=== PATIENT | male | born 1970 | race Caucasian/White ===

== ENCOUNTER 2018-02-16 10:02 | Observation (INO) | payer MEDICARE ==
[2018-02-16] VITALS (10 sets, daily range): BP systolic 118–170; BP diastolic 72–89; BMI 42.8
[~2018-02-16] VITALS: Ht 170.2 cm; Wt 120.7 kg
--- NOTE | ~2018-02-16 | HEMODYNAMI ---
PATIENT:DEIDRA MOORE MEDICAL RECORD: [id number] : 66 LOCATION:[facility] D.2116 ADMISSION DATE: 02/16/18 Generatedon:02/17/20189:55 Patient name: DEIDRA MOORE Patient #: [id number] SSN: : 1970 Date of study: 02/17/2018 Page: Of Hemodynamic Procedure Report Patient Data Patient Demographics Procedure consent was obtained First Name: DEIDRA Gender: Male Last Name: OSCAR : 1970 [facility] Initial: L Age: 48 year(s) Patient #: [id number] Race: Unknown Additional ID: [id number] Contact details [address]: [address] [place] [address] State: [place] City: [place] Zip code: [address] Past Medical History Allergies Allergen Reaction Date Comments Reported Penicillins 02/17/2018 Admission Admission Data Admission Date: 02/16/2018 Admission Time: 13:17 Room #: D.2116 Lab Results Lab Result Date: 02/17/2018 Lab Result Time: 0:00 Biochemistry Name Units Result Min Max BUN mg/dl 12 --(-*--)-- 7 18 Creatinine mg/dl 0.9 --(-*--)-- 0.6 1.3 CBC Name Units Result Min Max Hemoglobin g/dl 13.2 -*(----)-- 13.5 17.5 Procedure Procedure Types Cath Procedure Diagnostic Procedure [facility] w/Coronaries Procedure Description Procedure Date Procedure Date: 02/17/2018 Procedure Start Time: 9:36 Procedure End Time: 9:53 Procedure Staff Name Function Yunior Shah MD Performing Physician Shelby Aguilera RT Monitor John Nixon RN Nurse Diamond Robles RT Scrub Procedure Data Cath Procedure Fluoroscopy Diagnostic fluoroscopy Total fluoroscopy Time: 3.5 time: 3.5 min min Diagnostic fluoroscopy Total fluoroscopy dose: 738 dose: 738 mGy mGy Contrast Material Contrast Material Type Amount (ml) Isovue 300 40 Entry Location Entry Primary Successful Side Size Upsize Upsize Entry Closure Eid ccessful Closure Location (Fr) 1 (Fr) 2 (Fr) Remarks Device Remarks Radial Right 6 Fr Mechanical artery Short Compression Estimated blood loss: 5 ml Diagnostic catheters Device Type Used For End Catheter Placement DIAGNOSTIC [place] 110cm Procedure 5Fr catheter ([id number]) DIAGNOSTIC [place] 110cm 5 Procedure Fr catheter ([id number]) Procedure Complications No complications Procedure Medications Medication Administration Route Dosage 0.9% NaCl I.V. 100 ml/hr Oxygen etCO2 Nasal cannula 2 l/min Heparin Flush Bag added to field 2 bags (1000units/500ml NS) Lidocaine 2% added to field 20 Radial Cocktail added to field 1 syringe (Verapomil 2mg/Nitro 400mcg/Heparin 1500units) Versed I.V. 2 mg Fentanyl I.V. 100 mcg Fentanyl I.V. 100 mcg Radial Cocktail I.A. 1 syringe (Verapomil 2mg/Nitro 400mcg/Heparin 1500units) Hemodynamics Rest HGB: 13.2 (g/dl) Heart Rate: 68 (bpm) Pressure Samples Time Site Value (mmHg) Purpose Heart Use Rate(bpm) 9:43 LV 128/22,25 Snapshot 85 9:44 AO 124/85(99) Pullback 87 9:44 LV 112/4,0 Pullback 87 Gradients Valve Time Site 1 Site 2 Mean SEP/DFP Peak To Heart Use (mmHg) (sec/min) Peak Rate (mmHg) (bpm) Aortic 9:44 LV AO 0 87 112/4,0 124/85(99) Calculations Valve P-P Mean Valve Index Valve Source Name Gradient Area Flow (cm2) Aortic 0 0 Snapshots Pre Cath Intra NCS Post Cath Vital Signs Time Heart Resp SPO2 etCO2 NIBP (mmHg) Rhythm Pain Sedation Rate (ipm) (%) (mmHg) Status Level (bpm) 9:24:32 74 16 98 44.4 133/80(115) NSR 0 (11) 10(A) , No pain 9:29:19 74 16 100 43.6 135/86(115) NSR 0 (11) 10(A) , No pain 9:34:06 79 17 96 42.9 129/84(104) NSR 0 (11) 10(A) , No pain 9:38:48 80 15 93 36.1 120/102(109) NSR 0 (11) 10(A) , No pain 9:44:18 85 13 92 28.6 119/75(111) NSR 0 (11) 9(A) , No pain 9:49:01 89 14 95 39.1 134/89(118) NSR 0 (11) 9(A) , No pain 9:53:42 87 9 97 36 130/91(127) NSR 0 (11) 9(A) , No pain Medications Time Medication Route Dose Verified Delivered Reason Notes Effectiveness by by 9:34:13 0.9% NaCl I.V. 100 John John Per ml/hr Tiffani Nixon physician RN RN 9:34:24 Oxygen etCO2 2 l/min John John Per Nasal Tiffani Nixon physician cannula RN RN 9:34:36 Heparin Flush added 2 bags John John used for Bag to Lorigan Tiffani procedure (1000units/500ml field RN RN NS) 9:34:47 Lidocaine 2% added 20ml John John for local to vial Lorigan Tiffani anesthetic RN RN 9:34:58 Radial Cocktail added 1 John John used for (Verapomil to syringe Lorigan Tiffani procedure 2mg/Nitro field CAMPOS RN 400mcg/Heparin 1500units) 9:35:15 Versed I.V. 2 mg John John for sedation Tiffani Nixon RN RN 9:35:24 Fentanyl I.V. 100 mcg John John for sedation Tiffani Nixon RN RN 9:41:33 Fentanyl I.V. 100 mcg John John for sedation Tiffani Nixon RN RN 9:41:44 Radial Cocktail I.A. 1 John Yunior for (Verapomil syringe Tiffani Shah MD vasodilation 2mg/Nitro RN 400mcg/Heparin 1500units) Procedure Log Time Note 8:53:42 Signed procedure consent form obtained from patient. 8:53:46 Time tracking: Regular hours (M-F 7:00 - 5:00) 8:53:50 Plan of Care:Hemodynamics will remain stable., Cardiac rhythm will remain stable., Comfort level will be maintained., Respiratory function will remain adequate., Patient/ family verbilizes understanding of procedure., Procedure tolerated without complication., Recovers from procedure without complications.. 8:54:22 H&P Date Dictated: 02/16/2018 Within 30 days and on chart.. 8:54:31 Patient allergic to Penicillins 8:55:05 Lab Result : BUN 12 mg/dl 8:55:05 Lab Result : Creatinine 0.9 mg/dl 8:55:05 Lab Result : Hemoglobin 13.2 g/dl 9:08:20 John Nixon RN sent for patient. Start room use. 9:23:28 Patient received from Pre/Post Procedure Room to CCL 1 Alert and oriented. Tansferred to table in Supine position. 9:23:30 Warm blankets applied, and cosme hugger turned on for patient comfort. 9:23:31 Correct patient and procedure confirmed by team. 9:23:33 ECG and BP/O2 sat monitors applied to patient. 9:23:34 Baseline sample Acquired. 9:23:34 Vital chart was started 9:23:39 Rhythm: sinus rhythm 9:23:41 Full Disclosure recording started 9:23:50 Pre-procedure instructions explained to patient. 9:23:51 Pre-op teaching completed and patient verbalized understanding. 9:24:14 Family unavailable. 9:24:18 Is the patient allergic to Iodine/contrast media? No. 9:24:29 Is patient on blood thinner?No 9:24:33 Patient diabetic? Yes. 9:24:35 ----Pre-sedation anethsthesia assessment.---- 9:24:38 Previous problem with sedation/anesthesia? No ? 9:24:40 Snore? Yes 9:24:42 Sleep apnea? No 9:25:03 If diabetic: On Metformin? No 9:25:07 Deviated septum? No 9:25:11 Opens mouth fully? Yes 9:25:17 Sticks out tongue? Yes 9:25:20 Airway obstruction? No ? 9:25:24 Dentures? No ? 9:25:33 Pre procedure: right dorsailis pedis pulse 2+ Normal; easily identifiable; not easily obliterated 9:25:38 Modified Rubén's test Ulnar < 7 seconds 9:25:57 IV patent on arrival in left hand with 0.9% NaCl at KVO. 9:26:29 Lab results completed and on chart. 9:26:35 Right Radial & Right Groin area was prepped with chlora-prep and draped in sterile fashion 9:26:38 Alarms reviewed by Amara N. 9:26:38 Sharps counted by scrub and verified by R.N. 9:30:01 Use device set Radial Dx or PCI 9:30:03 ACIST Syringe (54292) opened to sterile field. 9:30:03 Medline Cath Pack ([id number]) opened to sterile field. 9:30:06 Bag Decanter (2002S) opened to sterile field. 9:30:07 ACIST Hand Control (41057) opened to sterile field. 9:30:07 ACIST Manifold (94037) opened to sterile field. 9:30:08 Tegaderm 4 x 4 (1626W) opened to sterile field. 9:30:10 DIAGNOSTIC WIRE .035 260cm J wire (856544) opened to sterile field. 9:30:11 MBrace Wrist Support ([id number]) opened to sterile field. 9:30:13 SHEATH 6Fr Prelude Radial ([id number]) opened to sterile field. 9:31:13 --------ALL STOP TIME OUT------ 9:31:14 Final Timeout: patient, procedure, and site verified with staff and physician. All members of the team are in agreement. 9:31:16 Right Radial & Right Groin site verified by team. 9:31:19 Physical assessment completed. ASA score P 2 - A patient with mild systemic disease as per Yunior Shah MD. 9:31:22 Sedation plan: IV Moderate Sedation Medication:Versed, Fentanyl 9:33:06 Zero performed for pressure channel P1 9:34:13 0.9% NaCl 100 ml/hr I.V. was administered by John Nixon RN; Per physician; 9:34:24 Oxygen 2 l/min etCO2 Nasal cannula was administered by John Nixon RN; Per physician; 9:34:36 Heparin Flush Bag (1000units/500ml NS) 2 bags added to field was administered by John Nixon RN; used for procedure; 9:34:47 Lidocaine 2% 20ml vial added to field was administered by John Nixon RN; for local anesthetic; 9:34:58 Radial Cocktail (Verapomil 2mg/Nitro 400mcg/Heparin 1500units) 1 syringe added to field was administered by John Nixon RN; used for procedure; 9:35:15 Versed 2 mg I.V. was administered by John Nixon RN; for sedation; 9:35:24 Fentanyl 100 mcg I.V. was administered by John Nixon RN; for sedation; 9:35:49 Procedure started. 9:36:22 Local anesthetic to right radial artery with Lidocaine 2% by Yunior Shah MD.INITIAL ACCESS ONLY 9:40:32 A 6 Fr Short sheath was inserted into the Right Radial artery 9:41:03 A DIAGNOSTIC [place] 110cm 5Fr catheter ([id number]) was advanced over the wire and used for Procedure. 9:41:33 Fentanyl 100 mcg I.V. was administered by John Nixon RN; for sedation; 9:41:44 Radial Cocktail (Verapomil 2mg/Nitro 400mcg/Heparin 1500units) 1 syringe I.A. was administered by Yunior Shah MD; for vasodilation; 9:42:26 LV gram done using DRAKE 9:42:30 Injector settings: Ml/sec: 5, Volume: 15, 9:43:52 EF : 60 % 9:44:44 RCA angiography performed. 9:45:41 Catheter exchanged over wire. 9:46:57 A DIAGNOSTIC [place] 110cm 5 Fr catheter ([id number]) was advanced over the wire and used for Procedure. 9:48:35 LCA angiography performed. 9:49:19 Catheter removed. 9:49:51 Procedure ended.(Physican Out) 9:50:08 TR BAND Large ([id number]) opened to sterile field. 9:50:48 Sheath removed intact; hemostasis achieved with Mechanical Compression to the Right Radial artery. 9:51:08 Fluoroscopy time 03.50 minutes. 9:51:12 Fluoroscopy dose: 738 mGy 9:51:12 Flurop Dose total: 738 9:51:17 Contrast amount:Isovue 300 40ml. 9:51:19 Sharps counted by scrub and verified by R.N. 9:51:21 TR band inflated with 10cc of air. 9:51:29 Post-procedure physical assessment completed. ASA score P 2 - A patient with mild systemic disease as per Yunior Shah MD. 9:51:33 Post procedure rhythm: unchanged. 9:51:39 Estimated blood loss: 5 ml 9:52:48 Post procedure instruction explained to patient.Patient verbalizes understanding. 9:52:49 Patient needs reinforcement of post procedure teaching. 9:53:17 Procedure and supply charges have been captured, reviewed, submitted and are correct. 9:53:19 Procedure Complication : No complications 9:53:21 Vital chart was stopped 9:53:25 Report given to PCU. 9:53:28 Patient transfered to PCU with Bed. 9:53:30 Procedure ended. 9:53:30 Full Disclosure recording stopped 9:53:36 End room use (Document Last) Device Usage Item Name Manufacture Quantity Catalog Number Hospital Part Current M inimal Lot# / Charge Number Stock Stock Serial# Code ACIST Syringe Acist 1 48328 766088 607846 [id number] 2 0 (25303) Medical Systems StyleJam Medline Cath Cardinal 1 [id number] 185587 48823 124011 5 Filtec [facility] ([id number]) Bag Decanter Microtek 1 2001S 468562 41318 728061 5 (2001S) Medical Inc. ACIST Hand Acist 1 66120 251879 603431 777911 5 Control (02470) Medical Systems Inc ACIST Manifold Acist 1 55659 026271 903575 287007 5 (91589) Medical Systems Inc Tegaderm 4 x 4 3M 1 1626W 867145 913480 170896 5 (1626W) DIAGNOSTIC WIRE [facility] [place] 1 761689 587235 406892 625691 3 0 .035 260cm J wire (041478) MBrace Wrist Advanced 1 140-0250-00 130185 80890 742771 5 Support Vascular ([id number]) Dynamics SHEATH 6Fr Merit 1 [id number] 450749 832848 398514 5 Prelude Radial Medical ([id number]) DIAGNOSTIC Terumo 1 40-5023 236709 313526 796938 5 [place] 110cm 5Fr catheter (383060) DIAGNOSTIC Terumo 1 40-5013 381973 565199 767704 5 [place] 110cm 5 Fr catheter (407205) TR BAND Large Terumo 1 [id number] 622181 587538 165813 4 0 ([id number]) Signature Audit Clarence Stage Time Signature Unsigned Intra-Procedure 02/17/2018 Shelby Aguilera 9:55:23 AM RT(R) Signatures Monitor : Shelby Aguilera Signature : RT Date : Time : [facility] [address] [place] [address]
[2018-02-16] MEDS ORDERED: PERCOCET 10/3251 TA1 PO (10:07)
[2018-02-16 10:32] LABS: BASOPHILS 0.6 % (0-2); HEMATOCRIT 41.9 % (42.0-54.0); HEMOGLOBIN 14.4 g/dL (13.5-17.5); IMMATURE GRANULOCYTES 0.7 % (0-5); MCH 28.3 pg (26.0-34.0); MCHC 34.4 g/dL (31.0-37.0); MCV 82.3 fL (80.0-100.0); MEAN PLATELET VOLUME 10.5 fL (7.4-10.4); MONOCYTES 7.1 % (2-11); NEUTROPHILS 52.6 % (40-80); PLATELET COUNT 231 10x3/uL (130-400); RBC 5.09 10x6/uL (4.20-6.10); RDW 13.4 % (11.5-14.5); WBC 9.1 10x3/uL (4.8-10.8)
[2018-02-16 10:57] LABS: ALBUMIN 3.4 g/dL (3.4-5.0); ALKALINE PHOSPHATASE 116 U/L (46-116); ALT (SGPT) 73 U/L (10-68); BILIRUBIN - TOTAL 0.43 mg/dL (0.2-1.3); CALC OSMOLALITY 277 mosm/kg (275-300); CALCIUM 8.9 mg/dL (8.5-10.1); CARBON DIOXIDE 27.7 mmol/L (21.0-32.0); CHLORIDE - SERUM 97 mmol/L (98-107); CKMB 1.3 U/L (0.0-3.6); CREATINE KINASE 72 UL (21-232); CREATININE - SERUM 0.8 mg/dL (0.6-1.3); GLUCOSE 318 mg/dL (74-106); MAGNESIUM - SERUM 1.2 mg/dL (1.8-2.4); POTASSIUM - SERUM 3.7 mmol/L (3.5-5.1); SODIUM 132 mmol/L (136-145); UREA NITROGEN 14 mg/dL (7-18); eGFR NON AFRICAN AMERICAN > 90 mL/min (90-120)
[2018-02-16 11:00] LABS: TROPONIN-I < 0.017 ng/mL (0.000-0.060)
[2018-02-16 12:55] LABS: APPEARANCE CLEAR (CLEAR); BILIRUBIN NEGATIVE (NEGATIVE); COLOR YELLOW (YELLOW); GLUCOSE 1000 mg/dL (NEGATIVE); KETONE MODERATE mg/dL (NEGATIVE); NITRITE NEGATIVE (NEGATIVE); PROTEIN TRACE mg/dL (NEGATIVE); SPECIFIC GRAVITY 1.015 (1.005-1.020); UROBILINOGEN NORMAL (NORMAL)
[2018-02-16 12:56] LABS: BACTERIA FEW /hpf (NONE SEEN); EPITHELIAL CELLS OCC /hpf (0-5); MUCUS <1+ /lpf (NONE SEEN); RED CELLS - URINE OCC /hpf (0-5); WHITE CELLS - URINE RARE /hpf (0-5)
[2018-02-16 13:52] LABS: CKMB 1.2 U/L (0.0-3.6); CREATINE KINASE 58 UL (21-232); TROPONIN-I < 0.017 ng/mL (0.000-0.060)
[2018-02-16 14:22] LABS: CALC OSMOLALITY 275 mosm/kg (275-300); CALCIUM 8.2 mg/dL (8.5-10.1); CARBON DIOXIDE 23.7 mmol/L (21.0-32.0); CHLORIDE - SERUM 100 mmol/L (98-107); CREATININE - SERUM 0.8 mg/dL (0.6-1.3); GLUCOSE 272 mg/dL (74-106); POTASSIUM - SERUM 4.1 mmol/L (3.5-5.1); SODIUM 133 mmol/L (136-145); UREA NITROGEN 13 mg/dL (7-18); eGFR NON AFRICAN AMERICAN > 90 mL/min (90-120)
[2018-02-16 16:14] LABS: CHOL - HDL RATIO 5.3 ratio (2.3-4.9); LDL-HDL RATIO 1.9 ratio (1.5-3.5)
[2018-02-16 20:10] LABS: CKMB 1.1 U/L (0.0-3.6); CREATINE KINASE 73 UL (21-232)
[2018-02-16 20:11] LABS: TROPONIN-I < 0.017 ng/mL (0.000-0.060)
[2018-02-17 01:25] VITALS: BP 146/83
[2018-02-17 01:49] LABS: CREATINE KINASE 58 UL (21-232); TROPONIN-I < 0.017 ng/mL (0.000-0.060)
[2018-02-17 05:31] LABS: BASOPHILS 0.6 % (0-2); EOSINOPHILS 4.2 % (0-7); HEMATOCRIT 39.5 % (42.0-54.0); HEMOGLOBIN 13.2 g/dL (13.5-17.5); IMMATURE GRANULOCYTES 0.4 % (0-5); LYMPHOCYTES 41.1 % (15-50); MCH 27.8 pg (26.0-34.0); MCHC 33.4 g/dL (31.0-37.0); MCV 83.3 fL (80.0-100.0); MEAN PLATELET VOLUME 10.5 fL (7.4-10.4); MONOCYTES 6.1 % (2-11); NEUTROPHILS 47.6 % (40-80); PLATELET COUNT 239 10x3/uL (130-400); RBC 4.74 10x6/uL (4.20-6.10); RDW 13.4 % (11.5-14.5); WBC 9.8 10x3/uL (4.8-10.8)
[2018-02-17 05:56] LABS: ALKALINE PHOSPHATASE 89 U/L (46-116); ALT (SGPT) 64 U/L (10-68); BILIRUBIN - TOTAL 0.43 mg/dL (0.2-1.3); CALC OSMOLALITY 276 mosm/kg (275-300); CALCIUM 8.2 mg/dL (8.5-10.1); CHLORIDE - SERUM 101 mmol/L (98-107); CREATININE - SERUM 0.9 mg/dL (0.6-1.3); GLUCOSE 227 mg/dL (74-106); POTASSIUM - SERUM 3.9 mmol/L (3.5-5.1); PROTEIN - SERUM 7.1 g/dL (6.4-8.2); SODIUM 135 mmol/L (136-145); UREA NITROGEN 12 mg/dL (7-18); eGFR NON AFRICAN AMERICAN > 90 mL/min (90-120)
[2018-02-17 05:58] VITALS: BP 140/72
[2018-02-17 06:00] LABS: CARBON DIOXIDE 30.1 mmol/L (21.0-32.0)
[2018-02-17 09:15] VITALS: Ht 170.2 cm; Wt 120.7 kg
[2018-02-17 09:31] VITALS: BP 146/80
[2018-02-17] MEDS ORDERED: METOPROLOL TART50 MG PO (12:08)
[2018-02-17] MEDS ORDERED: ASPIRIN81 MG PO (12:08)
[2018-02-17] MEDS ORDERED: GLUCOPHAGE500 MG PO (12:08)
[2018-02-17 13:41] VITALS: BP 111/81
== END 2018-02-17 15:57 | disposition home or self-care (01) ==
LOC: D.ER 10:02 → D.EDHOLD 13:17 → D.M2 13:17 → OBSVTIME 13:18 → D.M2 15:42
PROVIDERS: Family Medicine; Internal Medicine Cardiovascular Disease
DX: I25.110 Atherosclerotic heart disease of native coronary artery with unstable angina pectoris (principal); E11.65 Type 2 diabetes mellitus with hyperglycemia; I10 Essential (primary) hypertension; G89.29 Other chronic pain; R10.32 Left lower quadrant pain

== ENCOUNTER → 2019-07-04 10:56 | Outpatient (CLI) | payer MEDICARE ==
[2018-02-17 09:15] VITALS: BMI 41.7
[~2019-07-04 10:56] MED LIST: ASPIRIN81 MG PO; GLUCOPHAGE500 MG PO; METOPROLOL TART50 MG PO; PERCOCET 10/3251 TA1 PO
== END | disposition home or self-care (01) ==
LOC: D.CT 10:56
PROVIDERS: ATTEND Internal Medicine Gastroenterology
DX: R10.32 Left lower quadrant pain (principal); R19.5 Other fecal abnormalities; R19.4 Change in bowel habit

== ENCOUNTER 2021-01-21 10:40 | Emergency (ER) | payer MEDICARE ==
[~2021-01-21] VITALS: Ht 170.2 cm; Wt 130.5 kg
[2021-01-21 10:49] VITALS: BP 168/106; Ht 170.2 cm; Wt 130.5 kg
[2021-01-21] MEDS ORDERED: COLCRYS0.6 MG PO (13:16)
== END 2021-01-21 13:38 | disposition home or self-care (01) ==
LOC: D.ER 10:40
DX: M10.9 Gout, unspecified (principal); E11.9 Type 2 diabetes mellitus without complications; Z79.84 Long term (current) use of oral hypoglycemic drugs